=== PATIENT | female | born 1990 | race African-American/Black ===

== ENCOUNTER 2017-04-09 14:16 | Emergency (ER) | payer OTHER ==
[2017-04-09] MEDS ORDERED: KETOROLAC TROMETHAMINE 30MG/ML ONE (15:44)
[2017-05-18] MEDS ORDERED: VALA10002 PO (16:29)
== END 2017-04-09 16:36 | disposition home or self-care (01) ==
LOC: EDH 14:16
DX: S43.085A Other dislocation of left shoulder joint, initial encounter (principal); S43.492A Other sprain of left shoulder joint, initial encounter; X58.XXXA Exposure to other specified factors, initial encounter; Y93.89 Activity, other specified; Y92.098 Other place in other non-institutional residence as the place of occurrence of the external cause; Y99.8 Other external cause status
CPT/HCPCS: 29105; 73030; 81025; 96372; 99285; J1885

== ENCOUNTER 2017-05-22 10:06 | Day surgery (SDC) | payer OTHER ==
[2017-05-18 16:07] VITALS: BP 87/52
[~2017-05-22] VITALS: Ht 158.8 cm; Wt 63.0 kg
[2017-05-22] VITALS (17 sets, daily range): BP systolic 93–113; BP diastolic 52–73
[~2017-05-22 10:06] MED LIST: LACTATED RINGERS 1000ML 1,000 ML IV SCH; VALA10002 PO
[2017-05-22] MEDS: CEFAZOLIN SODIUM 1 GM VIAL IVP SCH ×2 (11:00→12:29)
[2017-05-22] MEDS ORDERED: EPINEPHRINE 1 MG/ML 30ML VIAL IJ ONE (12:02)
[2017-05-22] MEDS ORDERED: BUPIVACAINE/EPI/PF 0.25% 30ML VIAL IJ ONE (12:02)
[2017-05-22] MEDS ORDERED: DEXAMETHASONE SOD PHOSPHATE 10MG/ML 1ML VIAL ONE (12:21)
[2017-05-22] MEDS ORDERED: LIDOCAINE PF 2% 5ML ABBOJECT ONE (12:21)
[2017-05-22] MEDS ORDERED: ONDANSETRON HCL 4 MG/2 ML VIAL ONE (12:21)
[2017-05-22] MEDS ORDERED: GLYCOPYRROLATE 0.2 MG/ML 5 ML VIAL ONE (12:21)
[2017-05-22] MEDS ORDERED: FENTANYL CITRATE PF 50 MCG/1 ML 2ML VIAL ONE ×2 (12:22→12:40)
[2017-05-22] MEDS ORDERED: MIDAZOLAM HCL 1 MG/ML 2ML VIAL ONE (12:22)
[2017-05-22] MEDS ORDERED: PROPOFOL 10 MG/ML 20ML VIAL IV ONE (12:22)
[2017-05-22] MEDS ORDERED: MEPERIDINE-PF 50 MG/ML SYG ONE (13:34)
[2017-05-22] MEDS ORDERED: KETOROLAC TROMETHAMINE 30MG/ML ONE (14:02)
[2017-05-22] MEDS ORDERED: MORPHINE SULFATE 10 MG/ML 1ML SYG ONE (14:13)
== END 2017-05-22 16:09 | disposition home or self-care (01) ==
LOC: DAH 10:06
PROVIDERS: ATTEND Orthopaedic Surgery
DX: S43.402A Unspecified sprain of left shoulder joint, initial encounter (principal); X58.XXXA Exposure to other specified factors, initial encounter; Y93.9 Activity, unspecified; Y92.89 Other specified places as the place of occurrence of the external cause; Y99.9 Unspecified external cause status
CPT/HCPCS: 29806; 81025; A4218; A4450; A4565; A4649 ×5; A4930; A6223; C1713 ×2; J0171; J0690; J1100; J1885; J2001; J2175; J2250; J2270; J2405; J2704; J3010 ×2; J3490 ×2; J7120 ×2

== ENCOUNTER 2017-08-09 16:00 | Emergency (ER) | payer OTHER ==
[~2017-08-09 16:00] MED LIST changes: -LACTATED RINGERS 1000ML 1,000 ML IV SCH
== END 2017-08-09 16:33 | disposition home or self-care (01) ==
LOC: EDH 16:00
DX: J01.90 Acute sinusitis, unspecified (principal); H92.03 Otalgia, bilateral

== ENCOUNTER 2018-01-30 16:05 | Emergency (ER) | payer OTHER | END 2018-01-30 17:02 | disposition home or self-care (01) | LOC: EDH 16:05 | DX: J06.9 Acute upper respiratory infection, unspecified (principal); J32.0 Chronic maxillary sinusitis; Z98.890 Other specified postprocedural states; Z79.899 Other long term (current) drug therapy | CPT/HCPCS: 99282 ==